=== PATIENT | female | born 1950 | race Caucasian/White ===

== ENCOUNTER → 2017-01-12 | Outpatient (CLI) | payer MEDICARE | END | disposition home or self-care (01) | LOC: LABWHC1 08:54 | PROVIDERS: ATTEND Family Medicine | DX: E78.2 Mixed hyperlipidemia (principal); E55.9 Vitamin D deficiency, unspecified; E03.9 Hypothyroidism, unspecified; R53.83 Other fatigue | CPT/HCPCS: 36415; 80061; 82306; 83789; 84439; 84443 ==

== ENCOUNTER → 2017-01-31 | Outpatient (CLI) | payer MEDICARE ==
--- NOTE | 2017-01-31 12:51 | EST ---
DATE OF SERVICE: 01/31/2017 AGE: 66Y SEX: F HT: 69 WT: 190 lbs. Protocol Mo: X Other: Stage: II Dur. of Exercise: 7:18 *Heart Rate Blood Pressure *Rest: 58 Rest: 196/91 * *Max. Achieved: 121 Maximum BP: 194/81 85% PMHR: 128 100% PMHR: 151 *METS: 8.1 INDICATIONS: Physical. MEDICATIONS: Synthroid, aspirin. The patient was exercised for a total period of 7 minutes and 18 seconds. Peak heart rate of 121 was achieved. Maximum blood pressure of 194/81 mmHg was noted. Resting EKG shows normal sinus rhythm with normal NJ interval and QRS duration and normal ST-T waves. No ST segment depression suggestive of ischemia is noted. The patient did not complain of any chest pain during the test. Occasional PVCs were noted. FINAL IMPRESSION: 1. This exercise test is not suggestive of ischemia. 2. Patient's exercise tolerance is average. 3. Occasional premature ventricular contractions were noted. 4. The patient did not complain of any anginal pain during the test.
== END | disposition home or self-care (01) ==
LOC: RADNMMAIN 11:00
PROVIDERS: ATTEND Family Medicine
DX: I25.10 Atherosclerotic heart disease of native coronary artery without angina pectoris (principal)
CPT/HCPCS: 93017

== ENCOUNTER → 2017-02-21 | Outpatient (CLI) | payer MEDICARE ==
--- NOTE | 2017-02-21 15:49 | XR ---
EXAMINATION TYPE: XR chest 2V DATE OF EXAM: 02/21/2017 COMPARISON: NONE HISTORY: Right-sided chest pain, fall, trauma 5 days prior TECHNIQUE: Frontal and lateral views of the chest are obtained on 3 images. FINDINGS: There is no focal air space opacity, pleural effusion, or pneumothorax seen. Suspect calc ified granuloma at the right costophrenic angle. The cardiac silhouette size is normal, the patient i s rotated on one view. The osseous structures are intact. IMPRESSION: No acute cardiopulmonary process. Possible granulomatous disease.
== END ==
LOC: RADXRMAIN 14:52
PROVIDERS: ATTEND Family Medicine
DX: R07.81 Pleurodynia (principal)
CPT/HCPCS: 71020

== ENCOUNTER → 2017-03-14 | Outpatient (CLI) | payer MEDICARE ==
--- NOTE | 2017-03-14 15:23 | US ---
EXAMINATION TYPE: US thyroid st tissue head/neck DATE OF EXAM: 03/14/2017 COMPARISON: US thyroid October 17, 2014 CLINICAL HISTORY: E04.1 Thryroid nodule. 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 2.8 X 1.9 x 2.4 cm echogenic solid nodule at the lower pole with well-defined margins; This nod ule is wider than tall and shows intranodular vascularity. Prior size: 3.2 x 2.2 x 1.7 cm LEFT: # of nodules measured on left: 0 ISTHMUS: # of nodules measured in the isthmus: 0 Bilateral neck scanned, no evidence of lymphadenopathy. Bilateral thyroid enlarged, grossly heterogen eous, lobulated appearance, nodule on right There is redemonstration of enlarged heterogeneous thyroid gland with a dominant hyperechoic nodule r ight thyroid lobe that is stable in size and appearance. No new nodules are evident. IMPRESSION: Overall stable findings, heterogeneous enlarged thyroid with dominant hyperechoic solid right thyroid nodule. No new greater than 1 cm solid or cystic nodules are seen.
--- NOTE | 2017-03-15 11:11 | ECHOF ---
Referral Reason:I25.10 ATHEROSCLEROTIC HEART DZ MEASUREMENTS -------- HEIGHT: 175.3 cm WEIGHT: 86.2 kg BP: 134/78 RVIDd: 2.8 cm (< 3.3) IVSd: 1.2 cm (0.6 - 1.1) LVIDd: 4.2 cm (3.9 - 5.3) LVPWd: 1.2 cm (0.6 - 1.1) EDV(Teich): 77 ml IVSs: 1.6 cm LVIDs: 2.2 cm LVPWs: 1.8 cm %IVS Thck: 33 % ESV(Teich): 16 ml EF(Teich): 80 % %FS: 48 % SV(Teich): 62 ml LALs A4C: 3.6 cm LAAs A4C: 8.0 cm LAESV A-L A4C: 15 ml LAESV MOD A4C: 12 ml LALs A2C: 4.8 cm LAAs A2C: 13.4 cm LAESV A-L A2C: 32 ml LAESV MOD A2C: 28 ml LAESV(A-L): 25 ml LAESV Index (A-L): 12.60 ml/m Ao Diam: 3.2 cm (2.0 - 3.7) AV Cusp: 1.8 cm (1.5 - 2.6) LA Diam: 3.0 cm (2.7 - 3.8) MV EXCURSION: 15.618 mm (> 18.000) MV EF SLOPE: 40 mm/s (70 - 150) EPSS: 1.2 cm MV E Faheem: 0.76 m/s MV DecT: 328 ms MV Dec Coamo: 2.3 m/s MV A Faheem: 1.37 m/s MV E/A Ratio: 0.56 MV PHT: 95 ms E/E': 8.60 E': 0.09 m/s LVOT Vmax: 1.04 m/s LVOT maxP.29 mmHg AV Vmax: 1.37 m/s AV maxP.49 mmHg TR Vmax: 2.19 m/s TR maxP.21 mmHg RAP: 5.00 mmHg RVSP: 24.21 mmHg FINDINGS -------- Sinus rhythm. This was a technically adequate study. There is mild concentric left ventricular hypertrophy. Overall left ventricular systolic function is normal with, an EF between 60 - 65 %. The right ventricle is normal in size and function. Normal LA size by volume 22+/-6 ml/m2. The right atrium is normal in size. Aortic valve is trileaflet and is mildly thickened. There is no evidence of aortic regurgitation. There is no evidence of aortic stenosis. The mitral valve leaflets are mildly thickened. There is trace mitral regurgitation. Trace tricuspid regurgitation present. There is no evidence of pulmonary hypertension. The right ventricular systolic pressure, as measured by Doppler, is 24.21mmHg. The pulmonic valve was not well visualized. The aortic root size is normal. Normal inferior vena cava with normal inspiratory collapse consistent with estimated right atrial pressure of 5 mmHg. The pericardium is normal. There is no pericardial effusion. CONCLUSIONS -------- 1. Sinus rhythm. 2. There is no evidence of pulmonary hypertension. 3. The right ventricular systolic pressure, as measured by Doppler, is 24.21mmHg. 4. The pulmonic valve was not well visualized. 5. The aortic root size is normal. 6. There is no pericardial effusion. 7. This was a technically adequate study. 8. There is mild concentric left ventricular hypertrophy. 9. Overall left ventricular systolic function is normal with, an EF between 60 - 65 %. 10. Normal LA size by volume 22+/-6 ml/m2. 11. Aortic valve is trileaflet and is mildly thickened. 12. The mitral valve leaflets are mildly thickened. 13. There is trace mitral regurgitation. 14. Trace tricuspid regurgitation present. SUPERINTENDENT PRODUCTION: Rip Grier RDCS
== END | disposition home or self-care (01) ==
LOC: RADUSWWP 14:57
PROVIDERS: ATTEND Family Medicine
DX: E04.1 Nontoxic single thyroid nodule (principal); E04.9 Nontoxic goiter, unspecified
CPT/HCPCS: 76536; 93306

== ENCOUNTER → 2018-12-27 | Outpatient (CLI) | payer MEDICARE ==
[2018-12-27 18:48] LABS: Protein, Total 6.5 g/dL (6.2-8.2)
[2018-12-27 18:55] LABS: Rheumatoid Factor 56 IU/mL (0-15)
[2018-12-27 21:36] LABS: Hemoglobin A1C 5.7 % (4.0-6.0)
[2018-12-28 12:12] LABS: Albumin 4.08 g/dL (3.80-4.90); Gamma Globulin 0.72 g/dL (0.70-1.50)
[2018-12-29 15:16] LABS: Lyme IgG/IgM 0.05 Index
[2018-12-30 08:34] LABS: ANA Pattern See Footnote
== END | disposition home or self-care (01) ==
LOC: LABWHC1 11:02
PROVIDERS: ATTEND Psychiatry & Neurology Neurology
DX: G62.9 Polyneuropathy, unspecified (principal)
CPT/HCPCS: 36415; 82550; 82607; 82747; 83036; 84165; 85652; 86038; 86039; 86431; 86618

== ENCOUNTER 2019-04-28 13:49 | Emergency (ER) | payer MEDICARE ==
[2019-04-28 14:54] VITALS: RESP 18
[2019-04-28] MEDS ORDERED: MORPHINE SULFATE 4 MG/ML SYRINGE IM STA (15:52)
--- NOTE | 2019-04-28 17:15 | XR ---
EXAMINATION TYPE: XR shoulder complete 3 views LT, XR humerus 2 views LT DATE OF EXAM: 04/28/2019 COMPARISON: NONE HISTORY: 68-year-old female with pain after fall FINDINGS: Left shoulder: Moderate degenerative changes AC joint with joint space narrowing and capsular hypertrophy. Mild scle rosis of the greater tuberosity suggest chronic rotator cuff tendinopathy. There is a comminuted and mildly angulated fracture of the surgical neck of the proximal left humerus . Mild regional displacement of comminuted fracture fragments. Humerus: No additional acute fracture seen of the more mid to distal left humerus. COMBINED IMPRESSION: Comminuted, mildly angulated fracture of the surgical neck of the proximal left humerus. Mild regiona l displacement of comminuted fracture fragments.
[2019-04-28] MEDS ORDERED: ACET/COD 300 MG/30 MG STARTER PACK 6 TAB BTL PO STA (17:30)
--- NOTE | 2019-04-28 18:12 | ED ---
Fall HPI - General Chief Complaint: Fall Stated Complaint: Shoulder injury Time Seen by Provider: 04/28/19 15:37 Source: family Mode of arrival: ambulatory - History of Present Illness Initial Comments: Patient is 68-year-old female presenting to the emergency department with a chief complaint of shoulder pain. She reports the incident occurred after she fell. Patient denies any head trauma. The incident occurred 1 hour prior to ED arrival. Patient reports pain with any movement of the left shoulder. Patient reports most of the pain is located along the anterior aspect of the right shoulder. Patient denies any numbness or tingling. Patient denies taking any medication to alleviate his symptoms. Patient reports the pain is a 9 and throbbing. - Related Data Allergies Allergy/AdvReac Type Severity Reaction Status Date / Time No Known Allergies Allergy Verified 04/28/19 14:51 Review of Systems ROS Statement: Those systems with pertinent positive or pertinent negative responses have been documented in the HPI. ROS Other: All systems not noted in ROS Statement are negative. Past Medical History Past Medical History: No Reported History, Thyroid Disorder History of Any Multi-Drug Resistant Organisms: None Reported Past Surgical History: Tonsillectomy Past Psychological History: No Psychological Hx Reported Smoking Status: Current every day smoker Past Alcohol Use History: Occasional Past Drug Use History: Marijuana General Exam Limitations: no limitations General appearance: alert, in no apparent distress Head exam: Present: atraumatic, normocephalic, normal inspection Eye exam: Present: normal appearance, PERRL, EOMI Pupils: Present: normal accommodation ENT exam: Present: normal exam, normal oropharynx, mucous membranes moist, TM's normal bilaterally, normal external ear exam Neck exam: Present: normal inspection, full ROM Respiratory exam: Present: normal lung sounds bilaterally Cardiovascular Exam: Present: regular rate, normal rhythm, normal heart sounds Extremities exam: Present: normal inspection, tenderness (Tenderness along the left shoulder and the proximal humerus.), normal capillary refill, other (+2 radial pulses bilaterally.). Absent: full ROM (Limited range of motion in the left shoulder) Back exam: Present: normal inspection, full ROM Neurological exam: Present: alert, oriented X3 Psychiatric exam: Present: normal affect, normal mood Skin exam: Present: warm, intact, normal color Course Vital Signs 04/28/19 04/28/19 14:51 18:35 Temperature 98.7 F 98 F Pulse Rate 69 80 Respiratory 18 18 Rate Blood Pressure 170/95 150/80 O2 Sat by Pulse 99 97 Oximetry Medical Decision Making - Medical Decision Making Patient is a 68-year-old female presenting to the emergency department with chief complaint of left shoulder pain. Patient reports she fell and attempted to brace herself with the left arm. Patient does have pain in the proximal humerus. Patient is a limited range of motion in the left shoulder. Patient neurovascularly intact in the left arm. X-rays indicative of the community, mildly angulated fracture of the surgical neck of the proximal left humerus. Mild regional displacement of commuted fracture fragments. Patient given a sling and advised to follow-up with orthopedics. Strict return parameters were thoroughly discussed with patient was understanding and agreeable. Patient given analgesia and will be discharged with a Tylenol 3 starter pack. Patient advised about the possible side effects of Tylenol 3. Case discussed with physician. Disposition Clinical Impression: Humeral fracture Disposition: HOME SELF-CARE Condition: Stable Instructions (If sedation given, give patient instructions): Generalized Anxiety Disorder (ED) Additional Instructions: Please follow up with orthopedics. Please return to emergency department if symptoms worsen. Alternate between Tylenol and ibuprofen for pain control. Is patient prescribed a controlled substance at d/c from ED?: No Referrals: Kolby Buchanan DO [Primary Care Provider] - 1-2 days Oscar Barfield MD [STAFF PHYSICIAN] - 1-2 days Time of Disposition: 18:12
[2019-04-28 18:35] VITALS: BP 150/80; PULSE 80; TEMP 98
== END 2019-04-28 18:35 | disposition home or self-care (01) ==
LOC: EC 13:49
DX: S42.212A Unspecified displaced fracture of surgical neck of left humerus, initial encounter for closed fracture (principal); F17.200 Nicotine dependence, unspecified, uncomplicated; W19.XXXA Unspecified fall, initial encounter; Y92.009 Unspecified place in unspecified non-institutional (private) residence as the place of occurrence of the external cause
CPT/HCPCS: 73030; 73060; 99283; 96372; J2270

== ENCOUNTER → 2021-06-15 | Outpatient (CLI) | payer MEDICARE ==
[2021-06-15 15:45] LABS: C Reactive Protein 0.6 mg/dL (0.00-0.80)
[2021-06-15 15:51] LABS: Protein, Total 6.8 g/dL (6.2-8.2)
[2021-06-16 12:13] LABS: ANA Pattern Homogeneous
[2021-06-16 14:40] LABS: C-ANCA <1:20 Titer (<1:20)
[2021-06-16 15:18] LABS: Free Kappa Lt Chain Qnt, Serum 1.21 mg/dL (0.33-1.94)
[2021-06-17 08:50] LABS: Vit B1(Thiamine) 73 ug/L (38-122)
== END | disposition home or self-care (01) ==
LOC: LABWHC1 09:49
PROVIDERS: ATTEND Psychiatry & Neurology Neurology
DX: G60.3 Idiopathic progressive neuropathy (principal); R27.8 Other lack of coordination; E56.0 Deficiency of vitamin E; T45.2X1A Poisoning by vitamins, accidental (unintentional), initial encounter
CPT/HCPCS: 36415; 82306; 82607; 83883; 84165; 84207; 84425; 86038; 86039; 86140; 86235; 86255; 86334

== ENCOUNTER → 2021-11-03 | Outpatient (CLI) | payer MEDICARE ==
--- NOTE | 2021-11-03 13:14 | US ---
EXAMINATION TYPE: US venous doppler duplex LE RT DATE OF EXAM: 11/03/2021 1:06 PM COMPARISON: NONE CLINICAL HISTORY: M79.661 PAIN RIGHT LOWER LEG. SIDE PERFORMED: TECHNIQUE: The lower extremity deep venous system is examined utilizing real time linear array sonog rafael with graded compression, doppler sonography and color-flow sonography. VESSELS IMAGED: Common Femoral Vein Deep Femoral Vein Greater Saphenous Vein * Femoral Vein Popliteal Vein Small Saphenous Vein * Proximal Calf Veins (* superficial vessels) Right Leg: Color flow seen in deep veins at this time. At patient's area of concern, there appears to be a dilated superficial vein with internal echoes. Co kylah defect is seen here at the upper medial calf. Vessel appears to compress incompletely. IMPRESSION: Focal acute superficial venous clot in the upper medial calf at area of pain is consiste nt with superficial thrombophlebitis. No acute DVT in the left lower extremity.
== END | disposition home or self-care (01) ==
LOC: RADUSWWP 12:46
PROVIDERS: ATTEND Family Medicine
DX: I82.811 Embolism and thrombosis of superficial veins of right lower extremity (principal)

== ENCOUNTER → 2022-06-15 | Outpatient (CLI) | payer MEDICARE ==
--- NOTE | 2022-06-15 17:00 | CA ---
Transthoracic Echo Report Name: Michelle Puente Age: 71 Gender: F : 1950 Exam Date: 06/15/2022 11:15 Exam Location: [facility] Ht (in): 69 Wt (lb): 180 Ordering Physician: Kolby Buchanan DO Attending/Referring Phys: Benefits Coordinator Anel Lara RDCS Procedure CPT: Indications: I42.9 Cardiomyopathy, unspecified Cardiac Hx: Technical Quality: Fair Contrast 1: Total Dose (mL): Contrast 2: Total Dose (mL): MEASUREMENTS (Male / Female) Normal Values 2D ECHO LV Diastolic Diameter PLAX 3.8 cm 4.2 - 5.9 / 3.9 - 5.3 cm LV Systolic Diameter PLAX 2.3 cm IVS Diastolic Thickness 1.2 cm 0.6 - 1.0 / 0.6 - 0.9 cm LVPW Diastolic Thickness 1.4 cm 0.6 - 1.0 / 0.6 - 0.9 cm LV Relative Wall Thickness 0.7 LA Volume 50.6 cm??? 18 - 58 / 22 - 52 cm??? M-MODE Aortic Root Diameter MM 3.2 cm LA Systolic Diameter MM 3.0 cm LA Ao Ratio MM 0.9 AV Cusp Separation MM 1.8 cm DOPPLER AV Peak Velocity 153.6 cm/s AV Peak Gradient 9.4 mmHg LVOT Peak Velocity 116.6 cm/s LVOT Peak Gradient 5.4 mmHg MV Area PHT 3.1 cm??? Mitral E Point Velocity 84.9 cm/s Mitral A Point Velocity 147.6 cm/s Mitral E to A Ratio 0.6 MV Deceleration Time 241.8 ms MV E' Velocity 6.1 cm/s Mitral E to MV E' Ratio 14.0 TR Peak Velocity 231.0 cm/s TR Peak Gradient 21.3 mmHg Right Ventricular Systolic Press 26.3 mmHg FINDINGS Left Ventricle Mildly increased left ventricular wall thickness. Normal left ventricular systolic function with no obvious regional wall motion abnormalities. Left ventricular ejection fraction is estimated at 55 %. Right Ventricle Right ventricle not well visualized. Right ventricular systolic pressure within normal limits. Right Atrium Normal right atrial size. Left Atrium Normal left atrial size. Mitral Valve Structurally normal mitral valve. No mitral stenosis, regurgitation or prolapse. Aortic Valve Trileaflet aortic valve. No aortic valve stenosis or regurgitation. Tricuspid Valve Structurally normal tricuspid valve. Mild tricuspid regurgitation. Pulmonic Valve Structurally normal pulmonic valve. Trace pulmonic regurgitation. Pericardium No pericardial effusion. Aorta Normal size aortic root and proximal ascending aorta. CONCLUSIONS Normal LV systolic function Previewed by: Dr. Nick Benedict MD (Electronically Signed) Final Date: 15 June 2022 16:59
== END | disposition home or self-care (01) ==
LOC: RADECHMAIN 11:12
PROVIDERS: ATTEND Family Medicine
DX: I42.9 Cardiomyopathy, unspecified (principal)
CPT/HCPCS: 93306

== ENCOUNTER → 2022-10-26 | Outpatient (CLI) | payer MEDICARE ==
--- NOTE | 2022-10-26 15:27 | P.SLEEP ---
History of Present Illness H&P Date: 10/26/22 This is a 72-year-old female patient was referred to me today is of obstructive sleep apnea. Note that the patient's was recently diagnosed having LIANE and he was started on CPAP therapy. The patient herself is not sure if she has obstructive sleep apnea. During a recent discussion with her primary care physician, she stated that she was snoring and she doesn't sleep well. For that reason, further evaluation. The patient has history of snoring. Denies having any choking or gasping for air in the middle of the night. No grinding of the teeth. No heartburn. No palpitations. No excessive fatigue or tiredness during the day and her memory and concentration as well preserved. She goes to bed at around 11 PM and awakes at 7:30 AM in the morning. She has history of Wrkgvuy-Onsog-Bfcub and chronic neuropathy and restlessness and lower extremities. No recent fact, the patient has lost weight over the past 5 years in the order of 10 pounds. Her current Manila score is at 6. No sleep paralysis. No hallucinations. No cataplexy. No history of motor vehicle accident because of feeling drowsy or sleepy. Review of Systems Constitutional: Reports daytime sleepiness, Reports fatigue Eyes: denies as per HPI, denies blurred vision, denies bulging eye, denies decreased vision, denies diplopia, denies discharge, denies dry eye, denies irritation, denies itching, denies pain, denies photophobia, denies loss of peripheral vision, denies loss of vision, denies tunnel vision/blind spots Ears: deny: decreased hearing, ear discharge, earache, tinnitus Ears, nose, mouth and throat: Reports as per HPI Breasts: absent: as per HPI, change in shape, gynecomastia, masses, nipple discharge, pain, skin changes, swelling Cardiovascular: Reports as per HPI Respiratory: Reports snoring Gastrointestinal: Reports as per HPI Genitourinary: Reports as per HPI Menstruation: Reports as per HPI Musculoskeletal: Reports as per HPI Musculoskeletal: absent: ankle pain, ankle stiffness, ankle swelling Integumentary: Reports as per HPI Neurological: Reports as per HPI Psychiatric: Reports as per HPI Endocrine: Reports as per HPI Hematologic/Lymphatic: Reports as per HPI Allergic/Immunologic: Reports as per HPI Past Medical History Past Medical History: No Reported History, Thyroid Disorder Additional Past Medical History / Comment(s): Hypothyroidism, 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, macular degeneration History of Any Multi-Drug Resistant Organisms: None Reported Past Surgical History: Tonsillectomy Additional Past Surgical History / Comment(s): Lumpectomy from the breast, varicose vein stripping, hysterectomy Past Psychological History: No Psychological Hx Reported Past Alcohol Use History: Occasional Past Drug Use History: Marijuana Medications and Allergies Home Medications and Allergies Comment(s): Thyroid hormone 60 mg by mouth twice a day, Cymbalta 30 mg by mouth daily, coenzyme Q, zinc, lysine, vitamin D3, iodine, magnesium 400 mg by mouth daily Allergies Allergy/AdvReac Type Severity Reaction Status Date / Time No Known Allergies Allergy Verified 04/28/19 14:51 Physical Exam He is 131/79 with a pulse of 69 and a respiration of 16 with a temperature of 97.0 with a saturation of 98% on room air oxygen. Body mass index is 28 the height is 5 feet and 8 inches and the actual weight is 187 pounds. The side of the neck is 15 inches. Current Manila score is at 6. The patient appeared well nourished and normally developed. Vital signs as documented. The patient is a Mallampati class IV with significant crowding of the posterior pharynx Head exam is unremarkable. No scleral icterus or corneal arcus noted. Neck is without jugular venous distension, thyromegaly, or carotid bruits. Carotid upstrokes are brisk bilaterally. Lungs are clear to auscultation and percussion. Cardiac exam reveals the PMI to be normally sized and situated. Rhythm is regular. First and second heart sounds normal. No murmurs, rubs or gallops. Abdominal exam reveals normal bowel sounds, no masses, no organomegaly and no aortic enlargement. Extremities are nonedematous and both femoral and pedal pulses are normal.Examination of the skin revealed no evidence of significant rashes, suspicious appearing nevi or other concerning lesions.Neurologically, the patient is awake and alert and the patient does not have any focal neurological deficit. Cranial nerves are essentially intact. Assessment and Plan Plan: Snoring with limited fatigue and sleepiness and Manila score of 6, overall low suspicion for obstructive sleep apnea Crowding of the posterior oropharynx and Mallampati class IV History of restlessness in the lower extremities related to neuropathy and history of Xzopkrm-Tbggl-Nordu, maintain on magnesium supplements Hypothyroidism Macular degeneration Plan My overall suspicion for is clinically significant obstructive sleep apnea is on this patient. the patient has to undergo a home sleep study to screen for obstructive sleep apnea and decide if treatment is needed. Meanwhile, continue magnesium supplements. Keep regular sleep schedule. Maintaining good sleep hygiene measures. Optimize comorbidities and will continue to follow. Sleep Note - Sleep Note Sleep Note: Temperature: Pulse Rate: Respiratory Rate: Blood Pressure: SpO2: Height: Weight: BMI: Neck Circumference:
== END ==
LOC: SLEEP 13:50
PROVIDERS: ATTEND Internal Medicine Critical Care Medicine
DX: G47.33 Obstructive sleep apnea (adult) (pediatric) (principal); G25.81 Restless legs syndrome; E03.9 Hypothyroidism, unspecified; H35.30 Unspecified macular degeneration; Z99.89 Dependence on other enabling machines and devices; F17.200 Nicotine dependence, unspecified, uncomplicated; J39.2 Other diseases of pharynx; G60.0 Hereditary motor and sensory neuropathy
CPT/HCPCS: 99211

== ENCOUNTER → 2023-07-14 | Outpatient (CLI) | payer MEDICARE ==
--- NOTE | 2023-07-14 12:15 | XR ---
2 view left ankle. DATE: 07/14/2023. COMPARISON: None available. CLINICAL HISTORY: Trauma with pain and swelling. FINDINGS: The bones are diffusely demineralized. There is no fracture, subluxation or dislocation. The ankle mortise is well aligned. Mild soft tissue swelling seen along the lateral aspect of the ankle. There is a moderate-sized plantar calcaneal heel spur. IMPRESSION: No acute osseous abnormalities.
== END | disposition home or self-care (01) ==
LOC: RADXRMAIN 11:32
PROVIDERS: ATTEND Nurse Practitioner Family
DX: S93.402A Sprain of unspecified ligament of left ankle, initial encounter (principal)

== ENCOUNTER → 2023-12-08 | Outpatient (CLI) | payer MEDICARE ==
[2023-12-08 15:36] LABS: Basophils # (A) 0.04 X 10*3/uL (0.00-0.10); Basophils % (A) 0.7 %; Eosinophils # (A) 0.06 X 10*3/uL (0.04-0.35); Eosinophils % (A) 1.1 %; HCT 47.3 % (37.2-46.3); HGB 15.3 g/dL (12.0-15.0); Lymphocytes # (A) 1.19 X 10*3/uL (0.90-5.00); Lymphocytes % (A) 22.2 %; MCHC 32.3 g/dL (32.0-37.0); MCV 89.6 FL (80.0-97.0); Mean Platelet Volume 8.5 FL (9.5-12.2); Monocytes # (A) 0.41 X 10*3/uL (0.20-1.00); Monocytes % (A) 7.6 %; NRBC Per 100 WBC 0 X 10*3/uL (0.00-0.01); Neutrophils # (A) 3.65 X 10*3/uL (1.80-7.70); Neutrophils % (A) 68.2 %; Platelet Count 218 X 10*3/uL (140-440); RBC 5.28 X 10*6/uL (4.10-5.20); RDW 13.7 % (11.5-14.5); WBC 5.36 X 10*3/uL (4.50-10.00)
[2023-12-08 16:12] LABS: ALT 38 U/L (8-44); AST 29 U/L (13-35); Albumin 4.8 g/dL (3.8-4.9); Albumin/Globulin Ratio 2.18 Ratio (1.60-3.17); Alkaline Phosphatase 100 U/L (41-126); Blood Urea Nitrogen 19.5 mg/dL (9.0-27.0); Carbon Dioxide 27.2 mmol/L (21.6-31.8); Chloride 102 mmol/L (96-109); Globulin 2.2 g/dL (1.6-3.3); Glucose 95 mg/dL (70-110); Potassium 4.4 mmol/L (3.5-5.5); Sodium 141 mmol/L (135-145); Total Bilirubin 0.6 mg/dL (0.3-1.2)
[2023-12-08 16:56] LABS: Erythrocyte Sedimentation Rate 6 mm/Hr (0-30)
[2023-12-08 17:48] LABS: Anti-Smith Ab Interp Negative (Negative); DNA Double-Stranded Negative (Negative)
== END | disposition home or self-care (01) ==
LOC: LABWHC1 11:38
PROVIDERS: ATTEND Family Medicine
DX: E03.9 Hypothyroidism, unspecified (principal); E11.9 Type 2 diabetes mellitus without complications; G60.9 Hereditary and idiopathic neuropathy, unspecified; R76.8 Other specified abnormal immunological findings in serum; Z91.81 History of falling
CPT/HCPCS: 36415; 80053; 85025; 85652; 86038; 86039; 86160; 86225; 86235

== ENCOUNTER → 2024-01-02 | Outpatient (CLI) | payer MEDICARE ==
--- NOTE | 2024-01-02 19:06 | US ---
EXAMINATION TYPE: US thyroid st tissue head/neck DATE OF EXAM: 01/02/2024 COMPARISON: NONE CLINICAL INDICATION: Female, 73 years old with history of E03.9 HYPOTHYROIDISM E04.1 NONTOX THY NOD; thy nodules on meds GLAND SIZE: Right Lobe: 5.7 x 2.9 x 2.8 cm Overall Parenchyma: heterogeneous Left Lobe: 5.5 x 2.4 x 2.7 cm Overall Parenchyma: heterogeneous Isthmus Thickness: .4 cm NODULES RIGHT: # of nodules measured on right: 1 1. 2.4 x 2.6 x 2.4cm lower medial, solid or almost completely solid, hypoechoic nodule, which is wid er than tall, with smooth margins, without echogenic foci. TR 4 Prior size: 2.8 x 1.9 x 2.4 cm LEFT: # of nodules measured on left: 0 ISTHMUS: # of nodules measured in the isthmus: 0 Bilateral neck scanned, no evidence of lymphadenopathy. IMPRESSION: 1. Moderately suspicious nodule right lobe thyroid. Fine-needle aspiration recommended if not previou sly performed. 2017 ACR TI-RADS LEVEL: TR-RADS 4 - Moderately Suspicious: Follow if > 1 cm, FNA if > 1.5 cm *Highest TI-RADS level nodule reported
== END | disposition home or self-care (01) ==
LOC: RADUSWWP 13:18
PROVIDERS: ATTEND Family Medicine
DX: E03.9 Hypothyroidism, unspecified (principal); E04.1 Nontoxic single thyroid nodule
CPT/HCPCS: 76536

== ENCOUNTER → 2024-04-24 | Outpatient (CLI) | payer MEDICARE ==
[2024-04-24 15:11] LABS: Basophils # (A) 0.05 X 10*3/uL (0.00-0.10); Basophils % (A) 0.9 %; Eosinophils # (A) 0.06 X 10*3/uL (0.04-0.35); Eosinophils % (A) 1.1 %; HCT 45.4 % (37.2-46.3); HGB 14.5 g/dL (12.0-15.0); Lymphocytes # (A) 1.16 X 10*3/uL (0.90-5.00); Lymphocytes % (A) 21.8 %; MCH 28.8 pg (27.0-32.0); MCHC 31.9 g/dL (32.0-37.0); MCV 90.3 FL (80.0-97.0); Mean Platelet Volume 8.5 FL (9.5-12.2); Monocytes # (A) 0.44 X 10*3/uL (0.20-1.00); Monocytes % (A) 8.3 %; NRBC Per 100 WBC 0 X 10*3/uL (0.00-0.01); Neutrophils # (A) 3.58 X 10*3/uL (1.80-7.70); Neutrophils % (A) 67.5 %; Platelet Count 224 X 10*3/uL (140-440); RBC 5.03 X 10*6/uL (4.10-5.20); RDW 14.3 % (11.5-14.5); WBC 5.31 X 10*3/uL (4.50-10.00)
[2024-04-24 15:37] LABS: ALT 29 U/L (8-44); AST 27 U/L (13-35); Albumin 4.7 g/dL (3.8-4.9); Albumin/Globulin Ratio 2.04 Ratio (1.60-3.17); Alkaline Phosphatase 95 U/L (41-126); BUN/Creat Ratio 26.14 Ratio (12.00-20.00); Blood Urea Nitrogen 18.3 mg/dL (9.0-27.0); Calcium 9.8 mg/dL (8.7-10.3); Carbon Dioxide 25.8 mmol/L (21.6-31.8); Chloride 105 mmol/L (96-109); Chol/HDL Ratio 3.23 Ratio; Globulin 2.3 g/dL (1.6-3.3); Glucose 107 mg/dL (70-110); LDL Cholesterol,Calculated 137.7 mg/dL (0.0-131.0); Potassium 4.3 mmol/L (3.5-5.5); Sodium 142 mmol/L (135-145); T4, Free (Free Thyroxine) 1.22 ng/dL (0.80-1.80); Total Bilirubin 0.7 mg/dL (0.3-1.2)
== END | disposition home or self-care (01) ==
LOC: LABWHC1 11:13
PROVIDERS: ATTEND Internal Medicine Geriatric Medicine
DX: I42.9 Cardiomyopathy, unspecified (principal); E78.2 Mixed hyperlipidemia; E03.9 Hypothyroidism, unspecified; E55.9 Vitamin D deficiency, unspecified; E56.0 Deficiency of vitamin E; R73.9 Hyperglycemia, unspecified
CPT/HCPCS: 36415; 80053; 80061; 82306; 83036; 84439; 84443; 84446; 85025

== ENCOUNTER → 2024-12-20 | Outpatient (CLI) | payer MEDICARE ==
--- NOTE | 2024-12-21 13:02 | CA ---
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 67 - 155 / 56 - 104 cm??? LV Systolic Volume MOD BP 31.3 cm??? - / 19 - 49 cm??? LV Ejection Fraction MOD BP 65.8 % >= 55 % LV Cardiac Index MOD BP 1839.7 cm???/min???m??? LV Diastolic Volume MOD 4C 89.3 cm??? LV Systolic Volume MOD 4C 27.6 cm??? LV Ejection Fraction MOD 4C 69.1 % LV Cardiac Index MOD 4C 1879.9 cm???/min???m??? LV Diastolic Length 4C 7.7 cm LV Systolic Length 4C 7.0 cm LV Diastolic Volume MOD 2C 90.0 cm??? LV Systolic Volume MOD 2C 34.4 cm??? LV Ejection Fraction MOD 2C 61.8 % LV Cardiac Index MOD 2C 1694.7 cm???/min???m??? LV Diastolic Length 2C 8.1 cm LV Systolic Length 2C 6.7 cm LA Volume 49.5 cm??? - 58 / 22 - 52 cm??? LA Volume Index 24.0 cm???/m??? 16 - 28 cm???/m??? M-MODE Aortic Root Diameter MM 3.5 cm AV Cusp Separation MM 1.9 cm DOPPLER MV Area PHT 1.5 cm??? Mitral E Point Velocity 70.9 cm/s Mitral A Point Velocity 117.9 cm/s Mitral E to A Ratio 0.6 MV Deceleration Time 508.2 ms TR Peak Velocity 240.7 cm/s TR Peak Gradient 23.2 mmHg Right Ventricular Systolic Press 28.2 mmHg FINDINGS Left Ventricle Left ventricular ejection fraction is estimated at 55-60 %. Left ventricular cavity size normal. Mildly increased septal wall thickness. Mildly increased posterior wall thickness. Normal left ventricular wall motion. Right Ventricle Normal right ventricular size. Right ventricular systolic pressure within normal limits. Right Atrium Normal right atrial size. No right atrial thrombus or mass seen. Left Atrium Normal left atrial size. No left atrial thrombus or mass present. Mitral Valve Mitral valve thickened. No mitral stenosis, regurgitation or prolapse. Aortic Valve Trileaflet aortic valve. No aortic valve stenosis or regurgitation. Tricuspid Valve Structurally normal tricuspid valve. Mild tricuspid regurgitation. Pulmonic Valve Pulmonic valve not well visualized. Trace pulmonic regurgitation. Pericardium No pericardial effusion. Aorta Normal size aortic root and proximal ascending aorta. CONCLUSIONS Normal LV size and systolic function. No significant abnormality on the Doppler exam. No pericardial effusion Previewed by: Dr. Rey Mcdaniel MD (Electronically Signed) Final Date: 21 Dec 2024 13:02
== END | disposition home or self-care (01) ==
LOC: RADECHMAIN 11:21
PROVIDERS: ATTEND Internal Medicine Geriatric Medicine
DX: I51.81 Takotsubo syndrome (principal); I37.1 Nonrheumatic pulmonary valve insufficiency
CPT/HCPCS: 93306